=== PATIENT | male | born 2000 | race African-American/Black ===

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

== ENCOUNTER 2018-01-25 11:35 | Inpatient (IN) | payer MEDICAID ==
--- NOTE | 2018-01-25 12:22 | EDPHY ---
H & P Smoking Status: Never smoked Time Seen by Provider: 01/25/18 11:55 HPI/ROS: CHIEF COMPLAINT: M1 hold HISTORY OF PRESENT ILLNESS: 17-year-old male presents to the emergency department on M1 hold after he presented to the [facility] in [place] and talked with 1 of the counselors. The patient has had depression for a long time and ongoing suicidal thoughts. He has been researching on the Internet how go to end his own life. He states that he recently came out to his mom that he was bhatti and he states "she had a bad reaction to this". Denies homicidal ideation. Denies auditory or visual hallucinations. He has never been diagnosed with depression. He has never seen a counselor until today at [facility] in [place]. He states that he has never attempted suicide in the past. He has contemplated this multiple times. He states in high school he was going to buy a gun. He states he has contemplated overdosing on medication or cutting his wrist. Currently has no physical complaints. He does state that he is not sleeping well. He denies chest pain or difficulty breathing. Denies abdominal pain. Denies vomiting. No fevers or chills. REVIEW OF SYSTEMS: Constitutional: No fever, no chills. Eyes: No double or blurry vision. ENT: No sore throat. Respiratory: No cough, no shortness of breath. Cardiac: No chest pain. Gastrointestinal: No abdominal pain, vomiting or diarrhea. Genitourinary: No dysuria. Musculoskeletal: No neck or back pain. Skin: No rashes. Neurological: No headache. (TikaJaneth biggs) Past Medical/Surgical History: Depression (Janeth Thomson) Social History: [employer] student, originally from [place]. His mother lives in [place]. (TikadianJaneth M) Physical Exam: General Appearance: Alert, no distress. Tearful. Eyes: Pupils equal and round. Extraocular motions are all intact. ENT: Mouth: Mucous membranes moist. Respiratory: No wheezing, rhonchi, or rales, lungs are clear to auscultation. Cardiovascular: Regular rate and rhythm. Gastrointestinal: Abdomen is soft and nontender, no masses, no rebound or guarding, bowel sounds normal. Neurological: Alert and oriented x 3, cranial nerves II through XII grossly intact Skin: Old, healing superficial lacerations to the volar aspect of his left forearm. Warm and dry, no rashes. Musculoskeletal: Nontender to palpate along the cervical, thoracic or lumbar spine. Neck is supple. Extremities: Full range of motion and no peripheral edema. Psychiatric: Patient is oriented X 3, there is no agitation. (Janeth Thomson) Constitutional: Initial Vital Signs Temperature (C) 37 C 01/25/18 11:35 Heart Rate 80 01/25/18 11:35 Respiratory Rate 16 01/25/18 11:35 Blood Pressure 132/65 H 01/25/18 11:35 O2 Sat (%) 99 01/25/18 11:35 O2 Delivery Mode Room Air Allergies/Adverse Reactions: No Known Allergies Allergy (Unverified 09/08/17 18:57) Home Medications: Medication Instructions Recorded NK [No Known Home Meds] 01/25/18 Medical Decision Making ED Course/Re-evaluation: The patient is on an M1 hold. Laboratory studies been drawn and are pending. He is awaiting mental health evaluation. The patient was medically cleared and was evaluated by mental health. He was kept on M1 hold and they are looking for placement. (Janeth Thomson) Differential Diagnosis: Depression including functional and major depression, situational depression, medication side effect, drugs and alcohol abuse. (Janeth Thomson) Other Provider: The patient was evaluated and managed by the Physician Livestock Speculator. I discussed the patient's presentation and course with the midlevel provider with them and agree with the evaluation. My co-signature indicates that I have reviewed this chart and I agree with the findings and plan of care as documented. I am the secondary supervising physician. Patient was accepted at [address] [place] [id number] Duron Transfer paperwork was signed by myself. Patient was transferred to [address] [place] [address]. (Idalmis Skelton) Care Turn Over: Care will be turned over to Dr. Idalmis Skelton at 5pm for disposition and plan. ( Janeth Thomson) - Data Points Laboratory Results: Laboratory Results 01/25/18 12:09 01/25/18 12:09 01/25/18 01/25/18 01/25/18 12:25 12:09 12:09 WBC 4.32 10^3/uL 10^3/uL (3.80-9.50) RBC 5.97 10^6/uL 10^6/uL (4.40-6.38) Hgb 17.6 g/dL H g/dL (13.7-17.5) Hct 50.4 % % (40.0-51.0) MCV 84.4 fL fL (81.5-99.8) MCH 29.5 pg pg (27.9-34.1) MCHC 34.9 g/dL g/dL (32.4-36.7) RDW 12.2 % % (11.5-15.2) Plt Count 224 10^3/uL 10^3/uL (150-400) MPV 10.6 fL fL (8.7-11.7) Neut % (Auto) 58.3 % % (39.3-74.2) Lymph % (Auto) 33.1 % % (15.0-45.0) [place] % (Auto) 7.4 % % (4.5-13.0) Eos % (Auto) 0.5 % L % (0.6-7.6) Baso % (Auto) 0.5 % % (0.3-1.7) Nucleat RBC Rel Count 0.0 % % (0.0-0.2) Absolute Neuts (auto) 2.52 10^3/uL 10^3/uL (1.70-6.50) Absolute Lymphs (auto) 1.43 10^3/uL 10^3/uL (1.00-3.00) Absolute Monos (auto) 0.32 10^3/uL 10^3/uL (0.30-0.80) Absolute Eos (auto) 0.02 10^3/uL L 10^3/uL (0.03-0.40) Absolute Basos (auto) 0.02 10^3/uL 10^3/uL (0.02-0.10) Absolute Nucleated RBC 0.00 10^3/uL 10^3/uL (0-0.01) Immature Gran % 0.2 % % (0.0-1.1) Immature Gran # 0.01 10^3/uL 10^3/uL (0.00-0.10) Sodium 143 mEq/L mEq/L (135-145) Potassium 3.6 mEq/L mEq/L (3.5-5.2) Chloride 104 mEq/L mEq/L (97-110) Carbon Dioxide 25 mEq/l mEq/l (22-31) Anion Gap 14 mEq/L mEq/L (8-16) BUN 16 mg/dL mg/dL (7-23) Creatinine 0.8 mg/dL mg/dL (0.7-1.3) Estimated GFR > 60 Glucose 99 mg/dL mg/dL (70-100) Calcium 10.5 mg/dL H mg/dL (8.5-10.4) TSH 0.720 uIU/mL uIU/mL (0.465-4.680) Urine Opiates Screen NEGATIVE (NEGATIVE) Urine Barbiturates NEGATIVE (NEGATIVE) Ur Phencyclidine Scrn NEGATIVE (NEGATIVE) Ur Amphetamine Screen NEGATIVE (NEGATIVE) U Benzodiazepines Scrn NEGATIVE (NEGATIVE) Urine Cocaine Screen NEGATIVE (NEGATIVE) U Marijuana (THC) Screen NON-NEGATIVE H (NEGATIVE) Ethyl Alcohol < 10 mg/dL mg/dL (0-10) Departure - Departure Disposition: [facility] IP Clinical Impression: Suicidal ideation Condition: Good
[2018-01-25 12:26] LABS: PLATELET COUNT 224 10^3/uL (150-400)
[2018-01-26] MEDS ORDERED: MAGNESIUM HYDROXIDE 30 ML UDCUP PO PRN (10:37)
[2018-01-26] MEDS ORDERED: LORazepam 0.5 MG TAB PO PRN (10:37)
[2018-01-26] MEDS ORDERED: MAG HYDROX/AL HYDROX/SIMETH 30 ML UDCUP PO PRN (10:37)
[2018-01-26] MEDS ORDERED: ACETAMINOPHEN 325 MG TAB PO PRN (10:37)
--- NOTE | 2018-01-26 15:44 | BAPA ---
[f rep st] ADMISSION PSYCHIATRIC ASSESSMENT DATE OF SERVICE: 01/26/2018 CHIEF COMPLAINT: "I'm having a having a hard time." HISTORY OF PRESENT ILLNESS: The patient is a 17-year-old male who presents to the e mergency department on an M1 hold after going initially to the [facility] at [facility] reporting thoughts of suicide. He states that he has been struggling with his sexual identity, acknowledging to himself that he is homosexual but not being able to discuss this with his family. He states that he did abruptly come out to his mother about 2 weeks ago when she showed up at his apa rtment announced, walked in and found some marijuana paraphernalia on his table. He states that she objects strongly to his use of marijuana as she is very jainism and she began to lecture him about this. This frustrated him and he told her he was bhatti. He states this also frustrated her and she be came extremely upset, crying and began to involve family members in their large extended family and f riend network and the [place] community here in [place]. He states that he grew up in this communit y and i well respected and that it caused quite a stir. He states that this is completely unacceptab le in [place] society and that his family is very unhappy about this. He also reports that his mot her wants him to go back to [facility] to do a 2 month course with some other family members who are in the clergy of their [employer] che[employer]ism. He states that they will "perform an exorcism" and als o pray for him and treat him with herbs in order to essentially cure his homosexuality. He states th at he does not believe this will be successful, but he is willing to do it in order to appease his mo ther and out of respect for his mother. He states that he got very frustrated with this yesterday an d had been making some scratches on his wrist with a knife. He states that he was trying to build up the courage to commit suicide with the knife because he believed this would be more honorable and le ss shameful to his family than for everyone to find out that he is bhatti. He states at that time his m other called and he told her about what his thoughts were and she directed him to go to the [facility]. There, he mentioned his thoughts of suicide, and he was referred to the emergency departme on an M1 hold. Today, he states that he is not believe he is depressed. He is just "really stres sed" and he states that he is unable to participate in his classes at school. He is unmotivated, spe nds most of his time in bed, feels helpless and hopeless and ashamed, and has trouble sleeping. He s tates his appetite is decreased and he feels "anxious and sad all the time." He has no previous psyc hiatric history of any kind and has taken no previous psychotropic medications. He states to me david castañeda that he is not interested in taking psychotropic medications, but "I just need to deal with this." He states he was hoping to talk with somewhat at [facility] but after he voiced the thoughts of suicide, they brought him to the emergency department. PAST PSYCHIATRIC HISTORY: Noncontributory for any previous history of psychiatric treatments, hospit alizations, or suicide attempts. ALLERGIES: No known medical allergies. CURRENT MEDICATIONS: None. PAST MEDICAL HISTORY: Noncontributory. SOCIAL HISTORY: Patient is single with no dependents. He attends the [employer] though states he just withdrew. He was studying business. He intends to return to his mother's home in the [place] area where he grew up. He states he has 3 younger siblings and a cousin who all live with them. He plans to go to [facility] as soon as possible to begin this jainism treatment and he state s that this is not a negative to him as he enjoys [place], speaks both of the local languages and fe els very comfortable there. He states that he hopes it is not to shameful for him in the sense of hi s relatives being negative as this is something that is quite taboo in the [place] culture per his report. He denies any other stresses other than his academics and the family conflicts. SUBSTANCE ABUSE HISTORY: Patient states he smokes marijuana on a daily basis though this is relative ly new over the last several months. FAMILY HISTORY: Patient states his father is schizophrenic and bipolar and has had ongoing [facility] treatments in [place], where he lives. ADMISSION LABORATORY: CBC is normal. Serum chemistries are normal. TSH is normal at 0.720. Urine drug screen is positive for marijuana, nonquantitative. MENTAL STATUS EXAMINATION: Reveals a healthy-appearing, well groomed, pleasant and cooperative male. He appears slightly anxious but appropriate to the situation. His affect is blunted, stable and ap propriate. His mood is described as "messed up." His thought process is linear and goal directed. His thought content reveals no evidence of psychosis. He is alert and oriented to person, place, kip e, and situation. His sensorium is clear. He denies any current thoughts of suicide, homicide or beena lence and states that he had no true intention of killing himself yesterday. In fact, he was there to seek help when they placed him on the M1 hold. The patient's intellect appears to be average to abov e average. His insight and judgment appear to be good. IMPRESSION: Depressive disorder, not otherwise specified, possible adjustment disorder with mixed di sturbance of mood and anxiety, family conflict, academic stress. The patient is a pleasant 17-year-old male with a history of serious psychosocial stresses in the for m of dealing with his sexual identity and also the extremely difficult social and family aspects of t his within his culture. He states he very much values his family and his culture though also feels a ttracted to men and has extreme difficulty reconciling these things. He is willing to go and partici zuñiga in the jainism services and ceremonies in [facility] to hopefully fix this though he is complete ly aware that this is unlikely. PLAN: 1. Ad[facility] unit on an M1 hold. 2. Engage in individual, group, and milieu psychotherapies, and serial clinical interviews to better understand the extent of his underlying dysphoria and whether or not medications might be useful. T he patient currently states he is not interested in trying any medications. 3. We will work with patient and his family to organize a reasonable discharge plan including his fo veronica. Estimated length of stay is 3 to 5 days. /[id number]/MODL
--- NOTE | 2018-01-26 16:24 | GCON ---
[f rep st] CONSULTATION INTERNAL MEDICINE CONSULT DATE OF CONSULTATION: 01/26/2018 REFERRING PHYSICIAN: Ambrose Duron MD REASON FOR REFERRAL: Psychiatric medical physical exam. HISTORY OF PRESENT ILLNESS: The patient is a 17-year-old college student at , who comes in with de pression and suicidal ideation. He presented to the emergency department on an M1 hold after he went to [facility] and talked to one of the counselors. He has had depression fo r a long time and ongoing suicidal thoughts. He even has been researching the Internet on how to end his own life. The patient recently came out to his mother that he was bhatti, and she had a bad reacti on to this. He has a lot of guilt about his family not accepting him. Medically, he is doing well. He has had no recent illnesses, fevers, chills, weight changes. He denies any headaches, vision, he aring, speech changes. He has had no breathing issues, chest pain, abdominal pain, urinary symptoms, bowel changes. No musculoskeletal. No rashes. No other issues. REVIEW OF SYSTEMS: A comprehensive review of systems was done and negative except as stated in HPI: CONSTITUTIONAL: No fevers, chills, weight changes. EYES: No vision changes. ENT: No sore throat . No swallowing issues. RESPIRATORY: No asthma, coughing, shortness of breath. CARDIAC: No chest pain, palpitations. GI: No abdominal pain. : No dysuria. MUSCULOSKELETAL: No joint pain. SK IN: No rashes. NEUROLOGIC: No headache. PAST MEDICAL HISTORY: Significant for depression. SOCIAL HISTORY: He denies any alcohol or tobacco use. He is a student at the [employer]. FAMILY HISTORY: Reviewed. MEDICATIONS: None. ALLERGIES: No known drug allergies. PHYSICAL EXAMINATION: VITAL SIGNS: He is afebrile. Heart rate 76, blood pressure 107/69, respirati ons 14. He is 99% on room air. GENERAL: He is a well-developed, well-nourished 17-year-old. He is in no distress. He is alert and oriented. Speech is clear and fluent. HEENT: Pupils equal. Extr aocular movements intact. Mucous membranes moist. Oropharynx clear. NECK: Supple. No adenopathy. HEART: Regular rate and rhythm. No murmur, gallop, or rub. LUNGS: Clear to auscultation. No wh eeze, rhonchi, or rales. ABDOMEN: Soft, no masses. EXTREMITIES: No clubbing, cyanosis, or edema. MUSCULOSKELETAL: No joint deformities. SKIN: No rash. NEUROLOGIC: Moves all 4 extremities. Spe ech is fluent. PSYCHIATRIC: He is appropriate. LABORATORY DATA: CBC shows a hemoglobin of 17.6. The rest of the CBC and chemistries are normal exc ept for a mildly elevated calcium of 10.5. Urine tox screen is positive for marijuana use. TSH is n ormal. ASSESSMENT AND PLAN: A 17-year-old is admitted for psychiatric evaluation. Please see psych assessm ent for full details. Medically, he is well. He does have a mildly elevated hemoglobin and calcium. I suspect this is likely from dehydration. Will recommend no further evaluation at this time. Thank you for the consultation. /[id number]/MODL
[2018-01-27 06:51] VITALS: BP 127/94; PULSE 86; RESP 15; TEMP 97.4; O2SAT 93
== END 2018-01-27 15:45 | disposition home or self-care (01) | DRG 881 ==
LOC: BBEH 22:15
PROVIDERS: ADMIT Psychiatry & Neurology Psychiatry; ATTEND Psychiatry & Neurology Psychiatry
DX: F32.9 Major depressive disorder, single episode, unspecified (principal); F43.25 Adjustment disorder with mixed disturbance of emotions and conduct
CPT/HCPCS: 80305; G0480